=== PATIENT | female | born 1960 | race Caucasian/White ===

== ENCOUNTER 2018-06-23 11:10 | Outpatient (CLI) | payer BC ==
--- NOTE | 2018-06-23 18:06 | MMO ---
BILATERAL SCREENING MAMMOGRAM: Date: 06/23/18 HISTORY: 57-year-old female. Routine screening mammography. COMPARISON: 03/11/15, 02/19/16, 02/09/14, AND 05/25/12, TECHNIQUE: CC and MLO views of both breasts are submitted for interpretation. This patient's mammogram was reviewed with the assistance of computer-aided detection. FINDINGS: The breasts are composed of scattered fibroglandular tissue. Bilaterally, no suspicious dominant mass , architectural distortion, or suspicious calcifications. Benign-appearing calcification in the right breast. Stable mass in the upper left breast at approximately the 12 o'clock position. IMPRESSION: BIRADS 2: Benign Finding(s) RECOMMENDATION: Annual mammogram. POS: [facility]
== END 2018-06-23 11:11 | disposition home or self-care (01) ==
LOC: SCSMAMMO 11:10
PROVIDERS: ATTEND Obstetrics & Gynecology
DX: Z12.31 Encounter for screening mammogram for malignant neoplasm of breast (principal)
CPT/HCPCS: 77067

== ENCOUNTER 2025-01-24 11:25 | Outpatient (CLI) | payer OTHER | END 2025-01-24 11:26 | disposition home or self-care (01) | LOC: BICCT 11:25 | PROVIDERS: ATTEND Internal Medicine Cardiovascular Disease | DX: E78.00 Pure hypercholesterolemia, unspecified (principal); I70.90 Unspecified atherosclerosis | CPT/HCPCS: 75571 ==